=== PATIENT | female | born 1970 | race Caucasian/White ===

== ENCOUNTER 2024-04-05 12:54 | Outpatient (AMB) | payer BC, SELFPAY ==
[2024-04-05 12:57] VITALS: BP 112/70; PULSE 93; O2SAT 100; BMI 28.0
--- NOTE | 2024-04-05 12:57 | A.OFFPC_ITS ---
Vital Signs 04/05/24 12:57 Height 5 ft 7 in Weight 179 lb BMI 28.0 BP 112/70 Blood Pressure Location Rt brachial Position Sitting Pulse 93 Pulse Source Pulse Oximeter Pulse Oximetry (%) 100 Oxygen Delivery Method Room Air Intake Visit Reasons: re-est care/PE Intake Note: Pt is here today as a re-est care/PE Allergies No Known Allergies [No Known Allergies*] Allergy (Unverified 04/05/24 13:21) Medication List - Last Reconciled 04/05/24 by Wendy Treviño MD No Known Home Meds Tobacco use date assessed: 04/05/24 Dental Screening Dental Screen Date: 04/05/24 Did you have a dental visit in the last 12 months?: Yes Did you have a dental problem in the last 6 months where you did not have access to dental care?: No Was dental information given to patient?: Patient has dentist HPI re-est care/PE HPI Details - The patient is a 54-year-old female pr esenting for her physical exam. - She has history of thyroid disorder, for which she is not receiving treatment. - She experienced early menopause, with cessation of menstruation at 41 years, and symptomatic onset at 38 years with hot flashes. - The patient underwent a laparoscopic p rocedure for lumbar spine surgery a feb ago, which she reports was successful. - Her family medical history includes di abetes mellitus on her father's side and a case of bipolar disorder in her brother. - She has a history of hyperlipidemia wh ich is currently untreated and and has history of basal cell carcinoma which was surgically removed, and followed regularly at [facility] - The patient acknowledges infrequent ex ercise and only social alcohol consumption. [facility] Medical History (Updated 04/05/24 @ 13:49 by Wendy Treviño MD) Hx of skin cancer, basal cell Surgical History (Updated 04/05/24 @ 13:32 by Wendy Treviño MD) Hx of lumbar discectomy Family History (Updated 04/05/24 @ 13:33 by Wendy Treviño MD) Father No problems noted. Mother Hypertension Bladder cancer Brother No problems noted. Social History Housing: House Patient Tobacco Use Status: Never used Tobacco e-Cigarette/Vaping Use: Never Used service: No Current occupational status: employed Cognitive needs: No Hearing needs: No Vision needs: Yes Female Reproductive History Menstrual Age of Menarche: 16 Menopause type: natural Age of menopause: 41 Questionnaire PHQ-9 Over the last 2 weeks, how often have you been bothered by any of the following problems? 1. Little interest or pleasure in doing things: not at all 2. Feeling down, depressed, or hopeless: not at all 3. Trouble falling or staying asleep, or sleeping too much: several days 4. Feeling tired or having little energy: several days 5. Poor appetite or overeating: not at all 6. Feeling bad about yourself - or that you are a failure or have let yourself or your family down: not at all 7. Trouble concentrating on things, such as reading the newspaper or watching television: not at all 8. Moving or speaking so slowly that other people could have noticed. Or the opposite - being so fidgety or restless that you have been moving around a lot more than usual: not at all 9. Thoughts that you would be better off or of hurting yourself in some way: not at all Total score: 2 Depression Screening Interpretation: Negative Depression Screening Done: Yes 35130 - PHQ-9 Billing: Yes Source: Developed by Drs. Cory Kingsley, Shanice Russell, Obinna Hirsch and colleagues, with an educational bhumika from [employer]. Thrive Questionnaire Date Thrive assessed: 04/05/24 I am a: Patient What is your living situation today?: I have a steady place to live Within the past 12 months, did the food you bought not last and you didn't have the money to get more?: Never true Within the past 12 months, did you worry whether your food would run out before you got money to buy more?: Never true Do you have trouble paying for medicines?: No Do you have trouble getting transportation to medical appointments?: No Do you have trouble paying your heating and electricity bill?: No Do you have trouble taking care of your child, family member or friend?: No Do you have trouble with day-to-day activities such as bathing, preparing meals, shopping, managing finances, etc.?: No Are you currently unemployed and looking for a job?: No Are you interested in more education?: No Please select the resources that you would like help with: None Currently or been in a relationship where the following occur: No concerns reported THRIVE Score: 0 AUDIT C Alcohol Use Questionnaire (AUDIT-C) 1. How often do you have a drink containing alcohol?: Monthly or less 2. How many drinks containing alcohol do you have on a typical day when you are drinking?: 1 or 2 3. How often do you have six or more drinks on one occasion?: Never Total Score: 1 MARK-7 AMB Questionnaire MARK-7 Date MARK - 7 assessed: 04/05/24 Feeling nervous, anxious, or on edge: 0 = Not at all Not being able to stop or control worryin = Not at all Worrying too much about different things: 0 = Not at all Trouble relaxin = Not at all Being so restless that it is hard to sit still: 0 = Not at all Becoming easily annoyed or irritable: 0 = Not at all Feeling afraid as if something awful might happen: 0 = Not at all Total MARK-7 score (0-4 normal; 5-9 mild; 10-14 moderate; 15-21 severe): 0 Source: Developed by Drs. Cory Kingsley, Shanice Russell, Obinna Hirsch and colleagues, with an educational bhumika from [employer]. MARK-7 Assessment Billing MARK-7 Assessment Tool: MARK-7 Assessment 99783 Review of Systems Const Denies fatigue and Reports weight gain Eyes Details: Goes to [facility] for her routine eye exams Denies itchy eyes and Reports requires corrective lenses (reading /computers) ENT Details: dental prophylaxis q 6 mos Denies nasal congestion, Denies nasal discharge and Denies sore throat Card Denies chest pain, Denies lightheadedness, Denies palpitations and Denies dyspnea Resp Denies chest congestion, Denies cough, Denies dyspnea and Denies wheezing GI Denies abdominal pain, Denies change in bowel habits and Denies heartburn Denies hematuria, Denies urinary frequency, Denies dysuria and Denies urinary urgency Musc Reports no additional complaints Skin/Breast Denies breast pain, Denies breast mass, Denies lesions and Denies rash Neuro Reports no additional complaints Psych Reports no additional complaints Endo Denies fatigue, Denies polydipsia, Denies polyuria and Denies palpitations Ramin/Lymph Denies easy bruising Aller/Immun Denies itchy eyes, Denies seasonal rhinorrhea and Denies wheezing Physical exam (Primary Care) Vital Signs: Last Vital Signs Pulse 93 04/05/24 12:57 BP 112/70 04/05/24 12:57 Pulse Ox 100 04/05/24 12:57 Oxygen Delivery Method Room Air 04/05/24 12:57 BMI result Body Mass Index 28.0 Tobacco/Smoking Status: Tobacco use Status Tobacco use date assessed 04/05/24 04/05/24 13:01 Patient Tobacco Use Status Never used Tobacco 04/05/24 13:01 e-Cigarette/Vaping Use Never Used 04/05/24 13:01 PHQ-9: PHQ-9 Score PHQ-9: Total score 2 04/10/24 23:18 Depression Screening Interpretation: Negative Thrive Assessment: Date of Thrive Assessment Date Thrive assessed 04/05/24 04/05/24 13:01 Currently or been in a relationship where the following occur: No concerns reported Const General: no acute distress and alert Orientation/consciousness: patient oriented x3 HENMT Head: Yes normocephalic Ears: external ears normal, TM's normal bilaterally and EAC's normal General nose exam: Normal external nose present and No nasal discharge present Face and sinus: Yes face symmetric Mouth: Normal oral and palatal mucosa present, oropharynx normal and moist mucous membranes Eyes General: appearance normal, both eyes and all related structures Neck Neck: Yes full ROM, Yes no lymphadenopathy and Yes supple Thyroid: Thyroid normal Chest Breast/axilla palpation: normal palpation of the breasts Resp Effort & Inspection: normal respiratory effort and able to speak in complete sentences Auscultation: clear to auscultation bilaterally Cardio Rate: regular rate Rhythm: regular rhythm Heart sounds: S1 normal heart sound present and S2 normal heart sound present GI Palpation (GI): Soft to palpation, nontender, no guarding and no masses Auscultation: normal bowel sounds General: Yes no CVA tenderness Back/Spine/Pelvis Back: no CVA tenderness and No back tenderness Skin General skin exam: no rashes or lesions noted Neuro General: patient oriented x3, gait normal, moves all extremities, Normal light touch and pain sensation, no focal motor deficits and CN's II-XI intact bilaterally Cognition (Neuro): normal cognition Gait exam (Neuro): Normal gait present Motor exam (neuro): 5/5 motor strength present throughout Extrem General: Yes normal to inspection, Yes full ROM, Yes no joint enlargement, Yes no pedal edema and Yes normal gait Psych Appearance: grossly normal and well kempt Mental Status: mental status grossly normal Speech and movement: Normal speech and movement present Affect: normal affect Attitude: cooperative Thought process: Normal thought process present Thought content: Normal thought content present Coding Level of Care Code New Pt Prev Care 40-64y(20897) Diagnoses Annual visit for general adult medical examination with abnormal findings Z00.01 Encounter for screening for malignant neoplasm of colon Z12.11 Screening for malignant neoplasm of cervix Z12.4 Encounter for screening for diabetes mellitus Z13.1 Additional Codes MARK-7 Assessment Billing - MARK-7 Assessment Tool: MARK-7 Assessment 90009 ([id number]) PHQ-9 - 88469 - PHQ-9 Billing: Yes ([id number]) Assessment & Plan Assessment & Plan (1) Annual visit for general adult medical examination with abnormal findings: Code(s): Z00.01 - Encounter for general adult medical examination with abnormal findings (2) Encounter for screening for malignant neoplasm of colon: Code(s): Z12.11 - Encounter for screening for malignant neoplasm of colon (3) Screening for malignant neoplasm of cervix: Code(s): Z12.4 - Encounter for screening for malignant neoplasm of cervix (4) Encounter for screening for diabetes mellitus: Code(s): Z13.1 - Encounter for screening for diabetes mellitus Plan To support the patient's health, scheduling an annual mammogram is prioritized, with the patient?s consent to contact the [facility] for routine MOLDER BENCH evaluations. The history of hyperlipidemia prompts lipid level testing, while vitamin D levels will be assessed considering her basal cell carcinoma history and reduced sun exposure. No immediate bone density scanning is planned until the patient reaches 60 years to address osteoporosis risk. Referred to GI Clinic for her screening colonoscopy. Fasting labs were ordered today. Encour agement towards more physical exercise and weight management is provided to enhance overall wellness. Declined vaccines offered Patient was informed and verbally consented to the use of an ambient scribe for clinic note documentation during this visit. Orders: Orders Lipid Panel 04/05/24 Z00.01 - Encounter for general adult medical examination with abnormal findings, Z13.1 - Encounter for screening for diabetes mellitus, Z13.220 - Encounter for screening for lipoid disorders, Z78.0 - Asymptomatic menopausal state Basic Metabolic Panel Fasting 04/05/24 Z00.01 - Encounter for general adult medical examination with abnormal findings, Z13.1 - Encounter for screening for diabetes mellitus, Z13.220 - Encounter for screening for lipoid disorders, Z78.0 - Asymptomatic menopausal state Aspartate Amino Transferase 04/05/24 Z00.01 - Encounter for general adult medical examination with abnormal findings, Z13.1 - Encounter for screening for diabetes mellitus, Z13.220 - Encounter for screening for lipoid disorders, Z78.0 - Asymptomatic menopausal state Alanine Aminotransferase 04/05/24 Z00.01 - Encounter for general adult medical examination with abnormal findings, Z13.1 - Encounter for screening for diabetes mellitus, Z13.220 - Encounter for screening for lipoid disorders, Z78.0 - Asymptomatic menopausal state Vitamin D 25-OH Total 04/05/24 Z00.01 - Encounter for general adult medical examination with abnormal findings, Z13.1 - Encounter for screening for diabetes mellitus, Z13.220 - Encounter for screening for lipoid disorders, Z78.0 - Asymptomatic menopausal state Referrals Gastroenterology Referral Z12.11 - Encounter for screening for malignant neoplasm of colon MOLDER BENCH Referral Z12.4 - Encounter for screening for malignant neoplasm of cervix
== END 2024-04-05 13:54 | disposition home or self-care (01) ==
PROVIDERS: PCP Internal Medicine; Visit Provider Internal Medicine
DX: Z00.01 Encounter for general adult medical examination with abnormal findings (principal); Z12.11 Encounter for screening for malignant neoplasm of colon; Z12.4 Encounter for screening for malignant neoplasm of cervix; Z13.1 Encounter for screening for diabetes mellitus

== ENCOUNTER → 2024-04-05 12:54 | Outpatient (BNVA) | payer BC, SELFPAY | PROVIDERS: PCP Internal Medicine; Visit Provider Internal Medicine | DX: Z00.00 Encounter for general adult medical examination without abnormal findings (principal); Z78.0 Asymptomatic menopausal state | CPT/HCPCS: 96127 ==

== ENCOUNTER 2024-05-02 08:33 | Outpatient (AMB) | payer BC, SELFPAY ==
--- NOTE | 2024-05-02 08:42 | AM.OFFWIN_ITS ---
Intake Vital Signs 3 05/02/24 08:47 Weight 177 lb BP 130/80 Blood Pressure Location Lt brachial Position Sitting Pulse 83 Pulse Source Pulse Oximeter Temp 98.1 F Temp Source Oral Pulse Oximetry (%) 99 Oxygen Delivery Method Room Air Intake Visit Reasons: EP Cough, nausea, headache Intake Note: Patient here for nausea, headaches, dry cough that has been present for 12 days. and possible shingles on left hip area. Patient Tobacco Use Status: Never used Tobacco Allergies No Known Allergies [No Known Allergies*] Allergy (Unverified 05/02/24 08:48) Do you need a note to return to daycare/school/sports/work: No HPI HPI Comments 2 History of Present Illness0 Details 54 y/o female patient who presents to [facility] walk [facility] clinic with c/o URI symptoms for 12 days. Reports cough, chills, headaches and nausea but no vomiting. She does also report a rash on right thigh PFSH Medical History (Updated 05/02/24 @ 09:06 by Andreea Yang NP) Cough in adult Hx of skin cancer, basal cell Surgical History (Updated 04/05/24 @ 13:32 by Wendy Treviño MD) Hx of lumbar discectomy Family History (Updated 04/05/24 @ 13:33 by Wendy Treviño MD) Father No problems noted. Mother Hypertension Bladder cancer Brother No problems noted. Social History Housing: House Patient Tobacco Use Status: Never used Tobacco e-Cigarette/Vaping Use: Never Used service: No Current occupational status: employed Cognitive needs: No Hearing needs: No Vision needs: Yes Female Reproductive History Menstrual Age of Menarche: 16 Review of Systems Const All systems reviewed & are unremarkable except as noted in HPI and below Physical Exam Vital Signs: Last Vital Signs Temp 98.1 F 05/02/24 08:47 Pulse 83 05/02/24 08:47 BP 130/80 05/02/24 08:47 Pulse Ox 99 05/02/24 08:47 Oxygen Delivery Method Room Air 05/02/24 08:47 Const General: cooperative and no acute distress Orientation/consciousness: patient oriented x3 HEENT Head: Yes normocephalic Ears: external ears normal and TM abnormal with fluid behind the TM bilateral General nose exam: Normal external nose present Face and sinus: Yes sinuses nontender Mouth: moist mucous membranes Throat: Yes uvula midline Resp Effort & Inspection: normal respiratory effort, able to speak in complete sentences and Actively coughing Auscultation: clear to auscultation bilaterally, no crackles, no rales, no rhonchi and no wheezes Cardio Heart sounds: S1 normal heart sound present and S2 normal heart sound present Neuro General: patient oriented x3 Extrem Upper/lower leg/hip images: 2 1. Crusting erythematous like rash, healing. Assessment & Plan Assessment & Plan (1) Cough in adult: Code(s): R05.9 - Cough, unspecified Plan: Ordered Z-Pack OTC cough remedies Rash has resolved Rest and hydrate well with warm fluids. Medications: New 2 benzonatate 100 mg PO BID 30 caps 0RF R05.9 - Cough, unspecified azithromycin 500 mg PO DAILY 3 tabs 0RF 3 days R05.9 - Cough, unspecified Coding Level of Care Code Est Pt Level 4 (43003) Diagnoses Cough in adult R05.9 Time Spent (min) 20
[2024-05-02 08:47] VITALS: BP 130/80; PULSE 83; TEMP 36.7; O2SAT 99
== END 2024-05-02 09:09 | disposition home or self-care (01) ==
PROVIDERS: PCP Internal Medicine; Visit Provider Nurse Practitioner Family
DX: R05.9 Cough, unspecified (principal)

== ENCOUNTER → 2024-05-02 08:33 | Outpatient (BNVA) | payer BC, SELFPAY | PROVIDERS: PCP Internal Medicine ==

== ENCOUNTER 2024-05-02 09:08 | Outpatient (REF) | payer BC, SELFPAY ==
[2024-05-02 10:45] LABS: Alanine Aminotransferase 60 U/L (0-31); Anion Gap 10 (12-20); Aspartate Amino Transferase 31 U/L (5-31); Blood Urea Nitrogen 12 mg/dL (9-16); Calcium 9.6 mg/dL (8.4-10.2); Carbon Dioxide 27 mmol/L (22-29); Chloride 108 mmol/L (96-108); Cholesterol 244 mg/dL (<200); Estimated Glomerular Filt Rate > 60; Glucose Fasting 104 mg/dL (60-99); HDL Cholesterol 42 mg/dL (>40); LDL Cholesterol Calculated 170 mg/dL (<100); Sodium 141 mmol/L (135-145); Triglycerides 161 mg/dL (<150)
[2024-05-02 11:00] LABS: Vitamin D 25-OH Total 31.7 ng/mL (>30)
== END 2024-05-02 09:09 | disposition home or self-care (01) ==
LOC: HO.HMGCLDS 09:08
PROVIDERS: PCP Internal Medicine; Visit Provider Internal Medicine
DX: Z00.01 Encounter for general adult medical examination with abnormal findings (principal); Z13.220 Encounter for screening for lipoid disorders; Z13.1 Encounter for screening for diabetes mellitus; Z78.0 Asymptomatic menopausal state
CPT/HCPCS: 36415; 80048; 80061; 82306; 84450; 84460

== ENCOUNTER 2024-09-21 15:24 | Outpatient (AMB) | payer BC, SELFPAY ==
[2024-09-21 15:24] VITALS: BP 122/74; BMI 27.2
--- NOTE | 2024-09-21 15:24 | A.OFFVIS_ITS ---
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 No complaints. Last Pap/HPV was many years ago Last Mammogram was BI-RADS 1 in 03/05 No previous screening Colonoscopy PFSH Medical History Skin cancer Cough in adult Hx of skin cancer, basal cell Surgical History Hx of lumbar discectomy Family History Father No problems noted. Mother Hypertension Bladder cancer Brother No problems noted. 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 Sexual orientation: Straight/Heterosexual Gender identity: Female Cognitive needs: No Hearing needs: No Vision needs: Yes Female Reproductive History Menstrual Age of Menarche: 16 Total pregnancies: 0 Date of Mammogram: 03/13/21 Review of Systems Const All systems reviewed & are unremarkable except as noted in HPI and below Card Reports as per HPI Resp Reports as per HPI GI Reports as per HPI and Reports no additional complaints Reports as per HPI Physical Exam Vital Signs: Last Vital Signs BP 122/74 09/21/24 15:24 BMI result Body Mass Index 27.2 Const General: cooperative, healthy appearing and comfortable Chest Chest palpation & inspection: normal inspection of the chest and normal palpation of entire chest wall Breast/axilla inspection: normal inspection of the breasts and normal inspection of the axillae Breast/axilla palpation: normal palpation of the breasts, normal palpation of the axillae and no axillary lymphadenopathy Resp Effort & Inspection: normal respiratory effort Auscultation: clear to auscultation bilaterally Percussion: percussion normal Cardio Palpation: normal PMI Rate: regular rate Rhythm: regular rhythm Heart sounds: no murmurs and no rubs Peripheral pulses: Peripheral pulses 2+ throughout GI Inspection: Yes normal to inspection Palpation (GI): Soft to palpation, nontender, no guarding, not rigid and No hepatosplenomegaly present Percussion: Yes normal to percussion Auscultation: normal bowel sounds Rectal Exam - Female: deferred General: Yes bladder normal to palpation External Female Exam: No lesion Speculum Exam - Vagina: normal appearance of the vagina, normal palpation, normal vaginal discharge and not erythematous Speculum Exam - Cervix: normal appearance of the cervix and normal palpation Bimanual exam- vagina & uterus: normal bimanual exam, normal palpation, uterine size normal, bladder normal to palpation, consistency normal and normal palpation Bimanual Exam- Adnexa, other: adnexae abnormal (Left adnexal fullness), no masses and no tenderness Assessment & Plan Assessment & Plan (1) Well woman exam: Code(s): Z01.419 - Encounter for gynecological examination (general) (routine) without abnormal findings Category: Medical Plan: Co testing done. Counseled the patient about the recommended dietary allowance of 1200 mg of Calcium & 600 IU of vitamin D. Mammogram ordered. The patient was referred to GI for screening colonoscopy . The patient was instructed to perform monthly self-breast exams and schedule annual exam in a year. All questions answered and the patient verbalized understanding. (2) Adnexal fullness: Comment: Left side Code(s): N94.9 - Unspecified condition associated with female genital organs and menstrual cycle Category: Medical Plan: Discussed with the patient the finding on pelvic exam, left adnexal fullness, recommended pelvic ultrasound. Instructions given the patient to schedule follow-up ultrasound appointment in 2 weeks Orders: Orders MM tomosynthesis screening BI Today Z12.31 - Encounter for screening mammogram for malignant neoplasm of breast US pelvic and transvaginal Today N94.9 - Unspecified condition associated with female genital organs and menstrual cycle Referrals Gastroenterology Referral Z12.11 - Encounter for screening for malignant neoplasm of colon Coding Level of Care Code New Pt Prev Care 40-64y(55419) Diagnoses Well woman exam Z01.419 Adnexal fullness N94.9
== END 2024-09-21 15:58 | disposition home or self-care (01) ==
LOC: HO.HWS 15:25
PROVIDERS: PCP Internal Medicine; Visit Provider Obstetrics & Gynecology
DX: Z01.419 Encounter for gynecological examination (general) (routine) without abnormal findings (principal); N94.9 Unspecified condition associated with female genital organs and menstrual cycle
CPT/HCPCS: 99386; 99459

== ENCOUNTER 2024-09-21 15:24 | Outpatient (REF) | payer BC, SELFPAY ==
--- OUTSIDE RECORDS SUMMARY | 2024-09-21 16:04 | XMS_ITS | Patient Health Record ---
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 Name Role Phone Monique CARRILLO, Maricel Primary Care Provider Unavailable Armando White Unavailable [phone] Reason For Referral No Information Problems Problem Type SNOMED Code ICD Code Onset Dates Problem Status W/U Status Risk Notes Problem Hammer toe (945244751) Hammer toe (735.4) Active confirmed Problem Ulcer of Other Part of Foot (707.15) Active confirmed Plan Of Treatment Pending Test Test Name Order Date 08804- Debride <25 sq cm 07/23/2012 Insurance Providers Payer Name Payer Address Payer Phone Subscriber Number Group Number Insured Name Patient Relationship to Insured Coverage Start Date Coverage End Date [facility] All Others [address] [place] [address] [id number] Kenny Quevedo Spouse - patient is the spouse of the insured Medical (General) History Medical History History ICD Code headaches/migraines chicken pox back, hip, knee pain
== END 2024-09-21 15:25 | disposition home or self-care (01) ==
LOC: HO.LNP 15:24
PROVIDERS: PCP Internal Medicine; Visit Provider Obstetrics & Gynecology
DX: Z01.419 Encounter for gynecological examination (general) (routine) without abnormal findings (principal); N94.9 Unspecified condition associated with female genital organs and menstrual cycle; Z12.31 Encounter for screening mammogram for malignant neoplasm of breast; Z12.11 Encounter for screening for malignant neoplasm of colon
CPT/HCPCS: 87626; 88175

== ENCOUNTER 2024-10-21 12:52 | Outpatient (REF) | payer BC, SELFPAY ==
--- NOTE | ~2024-10-21 | US_ITS ---
CLINICAL HISTORY: N94.9 - ADNEXAL FULLNESS US pelvis transabdominal and transvaginal with color Doppler Comparison: Prior relevant studies not available for comparison Findings: Transabdominal scanning performed for overall anatomy. Transvaginal scanning performed for additional detail. LMP: Postmenopausal Retroverted uterus, heterogeneous in echotexture measuring 6.6 x 3.2 x 3.8 cm. Right intramural fundal fibroid measuring 0.8 x 0.7 x 0.8 cm. Left intramural fundal fibroid measuring 0.5 x 0.5 x 0.6 cm. Well defined endometrium, measuring 1.0 mm in thickness. Incidental nabothian cysts. The right ovary measures, 1.5 x 0.9 x 1.2 cm. Probable residual follicle measuring 6 mm. Normal color Doppler with normal ovarian arterial and venous spectral tracing, Left ovary not identified. No adnexal masses or fluid collections. No free fluid Impression: 1. Retroverted leiomyomatous uterus. 2. Normal thickness endometrium homogeneous and well-defined 3. Probable residual follicle right ovary in a early postmenopausal female. Left ovary not identified. No adnexal masses or fluid collections demonstrated. Consider annual follow-up. This document has been electronically signed by: Chago Neal MD on 10/21/2024 19:11:18
--- OUTSIDE RECORDS SUMMARY | 2024-10-21 12:55 | XMS_ITS | Patient Health Record ---
[facility] Address [address] [place] [address] Care Team Providers Care Sane Rn Name Role Phone Monique CARRILLO, Maricel Primary Care Provider Unavailable Armando White Unavailable [phone] Reason For Referral No Information Problems Problem Type SNOMED Code ICD Code Onset Dates Problem Status W/U Status Risk Notes Problem Hammer toe (618734020) Hammer toe (735.4) Active confirmed Problem Ulcer of Other Part of Foot (707.15) Active confirmed Plan Of Treatment Pending Test Test Name Order Date 49198- Debride <25 sq cm 07/23/2012 Insurance Providers Payer Name Payer Address Payer Phone Subscriber Number Group Number Insured Name Patient Relationship to Insured Coverage Start Date Coverage End Date [facility] All Others [address] [place] [address] [id number] Kenny Quevedo Spouse - patient is the spouse of the insured Medical (General) History Medical History History ICD Code headaches/migraines chicken pox back, hip, knee pain
== END 2024-10-21 12:53 | disposition home or self-care (01) ==
LOC: HO.US 12:52
PROVIDERS: PCP Internal Medicine; Visit Provider Obstetrics & Gynecology
DX: N94.9 Unspecified condition associated with female genital organs and menstrual cycle (principal)
CPT/HCPCS: 76830; 76856

== ENCOUNTER → 2024-10-21 12:53 | Outpatient (BNV) | payer BC, SELFPAY | PROVIDERS: PCP Internal Medicine; Visit Provider Radiology Diagnostic Radiology | DX: D25.1 Intramural leiomyoma of uterus (principal) | CPT/HCPCS: 76830; 76856 ==

== ENCOUNTER 2024-11-03 15:06 | Outpatient (AMB) | payer BC, SELFPAY ==
--- NOTE | 2024-11-03 15:07 | A.OFFVIS_ITS ---
Intake Visit Reasons: u/s results Application Technician: Application Technician Present Allergies No Known Allergies (No Known Allergies*) Allergy (Unverified 09/21/24 15:28) HPI Comments Details: The patient is schedule telehealth visit for ultrasound follow-up for adnexal fullness identified on pelvic exam. 10/21/2024 pelvic ultrasound showed the following: Retroverted uterus, heterogeneous in echotexture measuring 6.6 x 3.2 x 3.8 cm. Right intramural fundal fibroid measuring 0.8 x 0.7 x 0.8 cm. Left intramural fundal fibroid measuring 0.5 x 0.5 x 0.6 cm. Well defined endometrium, measuring 1.0 mm in thickness. Incidental nabothian cysts. The right ovary measures, 1.5 x 0.9 x 1.2 cm. Probable residual follicle measuring 6 mm. Normal color Doppler with normal ovarian arterial and venous spectral tracing, Left ovary not identified. No adnexal masses or fluid collections. No free fluid PFSH Medical History Skin cancer Cough in adult Hx of skin cancer, basal cell Surgical History Hx of lumbar discectomy Family History Father No problems noted. Mother Hypertension Bladder cancer Brother No problems noted. Social History Household Members: Spouse Housing: House Alcohol intake: current Alcohol intake frequency: holidays/special occasions only Patient Tobacco Use Status: Never used Tobacco e-Cigarette/Vaping Use: Never Used service: No Current occupational status: employed Current occupation: [employer] at Sexual orientation: Straight/Heterosexual Gender identity: Female Cognitive needs: No Hearing needs: No Vision needs: Yes Female Reproductive History Menstrual Age of Menarche: 16 Review of Systems Const All systems reviewed & are unremarkable except as noted in HPI and below Reports as per HPI and Reports no additional complaints GI Reports no additional complaints Reports no additional complaints Telehealth Telehealth Telehealth Platform: [facility] Location of provider rendering services: practice address Location of patient: address on file Patient Identification confirmed using: Name, : Yes Telehealth method: video Patient verbally consented to treatment: Yes Patient verbally consented to billing insurance company: Yes Patient informed of any privacy concerns related to visit: Yes Minutes spent on Phone/Video with Pt.: 3 Assessment & Plan Assessment & Plan (1) Uterine myoma: Code(s): D25.9 - Leiomyoma of uterus, unspecified Category: Medical Plan: Discussed with the patient the findings on pelvic ultrasound & the risk of myosarcoma; in addition reviewed with the patient that malignancy and pre malignancy cannot be ruled out without hysterectomy for pathological evaluation ; furthermore, explained to the patient the limitation of pelvic ultrasound and endometrial biopsy in the setting. Discussed with the patient the options of treatment including expectant management versus hysterectomy; the pros and cons, risks benefits of each approach were discussed with the patient including the fact that in cases of myosarcoma, surgical treatment can lead to early diagnosis and positively a ffects the prognosis; after further discussion, the patient decided to proceed with expectant management. Will repeat pelvic ultrasound periodically. Instructions given to patient to call in case any of the following occurs: pressure symptoms, abnormal uterine bleeding, pelvic pain; and to schedule a six-months pelvic ultrasound (order placed) and a follow-up appointment . All questions answered, the patient verbalized understanding and agreed with the plan . (2) Ovarian cyst: Code(s): N83.209 - Unspecified ovarian cyst, unspecified side Category: Medical Plan: Discussed with the patient the finding on ultrasound showing a 6 mm follicular cyst, recommended repeat ultrasound within six-months. All questions answered, the patient verbalized understanding I spent a total of 20 minutes reviewing the chart, talking to the patient via [employer] ideo and documenting in the medical record. Orders: Orders US pelvic and transvaginal 6 Months D25.9 - Leiomyoma of uterus, unspecified, N83.209 - Unspecified ovarian cyst, unspecified side Coding Level of Care Code Tele Est Pt Level 3 (91518) Diagnoses Uterine myoma D25.9 Ovarian cyst N83.209
== END 2024-11-03 15:30 | disposition home or self-care (01) ==
LOC: HO.HWS 15:06
PROVIDERS: PCP Internal Medicine; Visit Provider Obstetrics & Gynecology
DX: D25.9 Leiomyoma of uterus, unspecified (principal); N83.209 Unspecified ovarian cyst, unspecified side
CPT/HCPCS: 99213